=== PATIENT | female | born 2000 ===

== ENCOUNTER 2020-08-03 00:10 | Emergency (ER) | payer BC ==
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
== END 2020-08-03 01:15 | disposition home or self-care (01) ==
LOC: FB.ED 00:10
DX: F43.9 Reaction to severe stress, unspecified (principal); F41.0 Panic disorder [episodic paroxysmal anxiety]; Z79.899 Other long term (current) drug therapy
CPT/HCPCS: 99283